=== PATIENT | female | born 1950 | race Caucasian/White ===

== ENCOUNTER 2019-10-04 13:40 | Inpatient (IN) ==
[2019-10-04] MEDS ORDERED: Ethanol\\Acetic Acid\\Na Ace\\Ben 1,000 ML IRRIG.SOLN IR ONE (13:58)
[2019-10-04] MEDS ORDERED: CeFAZolin Syr 2,000MG/20 ML 2,000 MG/20 ML SYRINGE IVPB ONE (13:59)
[2019-10-04] MEDS ORDERED: Ringers Solution, Lactated 1,000 ML IVC SCH ×2 (14:00→18:29)
[2019-10-04] MEDS ORDERED: *HR* Propofol 200 MG/20 ML VIAL IVP ONE (15:12)
[2019-10-04] MEDS ORDERED: Lidocaine -MPF 2% 2 ML VIAL ONE (15:12)
[2019-10-04] MEDS ORDERED: Dexamethasone 4 MG/ML VIAL ONE (15:12)
[2019-10-04] MEDS ORDERED: *HR* Succinylcholine 200 MG/10 ML VIAL IVP ONE (15:12)
[2019-10-04] MEDS ORDERED: Lidocaine HCL 4 ML Topical Solution (Laryng-O-Jet Kit Sterile Pak) TP ONE (15:12)
[2019-10-04] MEDS ORDERED: Ondansetron 4 MG/2 ML VIAL ONE (15:12)
[2019-10-04] MEDS ORDERED: Ondansetron 4 MG/2 ML VIAL IVP ONE (15:16)
[2019-10-04] MEDS ORDERED: *HR* HYDROmorphone (PF) 1 MG/ML SYRINGE IVP PRN (15:16)
[2019-10-04] MEDS ORDERED: *HR* Promethazine 25 MG/ML VIAL IVP PRN (15:16)
[2019-10-04] MEDS ORDERED: *HR* OxyCODONE Immed Rel 5 MG TABLET PO PRN ×2 (15:16→18:29)
[2019-10-04] MEDS ORDERED: ROPIVACAINE/PF/NS 0.25% 1 EACH SYRINGE INTRAART ONE (16:10)
[2019-10-04] MEDS ORDERED: Ropivacaine/PF 0.5% 30 ML VIAL ONE (16:10)
[2019-10-04] MEDS ORDERED: *HR* FentaNYL (PF) 100 MCG/2 ML VIAL ONE (16:28)
[2019-10-04] MEDS ORDERED: EPHEDrine 50 MG/ML VIAL ONE (16:52)
[2019-10-04] MEDS ORDERED: *HR* Enoxaparin 30 MG/0.3 ML SYRINGE SQ SCH (18:00)
[2019-10-04] MEDS ORDERED: *HR* OxyCODONE/APAP 5/325 TABLET PO PRN (18:29)
[2019-10-04] MEDS ORDERED: Naloxone 0.4 MG/ML INJ IVP PRN (18:29)
[2019-10-04] MEDS ORDERED: Sennosides 8.6 MG TABLET PO PRN (18:29)
[2019-10-04] MEDS ORDERED: MOM Conc 10 ML UD.LIQ PO PRN (18:29)
[2019-10-04] MEDS ORDERED: Ondansetron 4 MG/2 ML VIAL IVP PRN (18:29)
[2019-10-04] MEDS ORDERED: hydrOXYzine pamoate 25 MG CAPSULE PO PRN (18:29)
[2019-10-04 18:38] LABS: Hematocrit 38.8 % (35.3-44.9); Hemoglobin 13.1 g/dL (11.5-15.4)
[2019-10-04] MEDS: ceFAZolin 2,000 MG in 0.9 % Sodium Chloride 100 ML IVPB SCH (21:47)
[2019-10-05] MEDS: ceFAZolin 2,000 MG in 0.9 % Sodium Chloride 100 ML IVPB SCH (05:35)
[2019-10-05] MEDS ORDERED: *HR* Enoxaparin 30 MG/0.3 ML SYRINGE SQ SCH (06:00)
[2019-10-05 06:31] LABS: Hemoglobin 13.4 g/dL (11.5-15.4)
[2019-10-05 06:45] VITALS: BP 147/81
[2019-10-05 07:06] LABS: BUN/Creatinine Ratio 14 (6-26); Blood Urea Nitrogen 14 mg/dL (8-23); Calcium 9.3 mg/dL (8.6-10.3); Carbon Dioxide 26 mEq/L (23-29); Chloride 106 mEq/L (98-107); Glucose 119 mg/dL (70-105); Osmolality,Calculated 300 (280-300); Potassium 5.1 mEq/L (3.5-5.1); Sodium 144 mEq/L (136-145); eGFR For African Americans > 60 (> 60); eGFR For Non-African Americans 55 (> 60)
[2019-10-05] MEDS ORDERED: Cholecalciferol (D-3) 1,000 UNIT (25MCG) TABLET PO SCH (09:00)
[2019-10-05] MEDS ORDERED: Loratadine 10 MG TABLET PO SCH (09:00)
[2019-10-05] MEDS ORDERED: Ascorbic Acid 500 MG TABLET PO SCH (09:00)
[2019-10-05] MEDS ORDERED: Zinc Sulfate 220 MG CAPSULE PO SCH (09:00)
== END 2019-10-05 11:39 | disposition home or self-care (01) | DRG 483 ==
LOC: SAMDAY 13:40 → 3NENU 18:20
PROVIDERS: ADMIT Orthopaedic Surgery; ATTEND Orthopaedic Surgery

== ENCOUNTER 2022-01-29 19:40 | Inpatient (IN) ==
[2022-01-29 20:46] LABS: Bilirubin,Urine Negative (Negative); Blood,Urine Negative (Negative); Clarity,Urine Clear (Clear); Color,Urine Yellow (Yellow); Glucose,Urine (UA) Normal (Normal); Ketones,Urine Trace mg/dL (Negative); Leukocyte Esterase,Urine Negative (Negative); Mucus,Urine Few per lpf (None-Few); Nitrite,Urine Negative (Negative); Protein,Urine 50 mg/dL (Neg-Trace); RBC,Urine 0-3 per hpf (0-3); Specific Gravity,Urine > 1.030 (1.010-1.025); Squamous Epithelial Cell,Urine Few per hpf (None-Few); WBC,Urine 0-3 per hpf (0-3)
[2022-01-29 20:50] LABS: Basophils # 0.1 K/mcL (0.0-0.2); Basophils % 0.4 %; Eosinophils % 0.1 %; Hematocrit 42.7 % (35.3-44.9); Hemoglobin 14.8 g/dL (11.5-15.4); Immature Granulocytes % 0.4 % (0-4); Lymphocytes # 1.8 K/mcL (0.6-4.6); Lymphocytes % 11.2 %; Mean Corpuscular HGB Conc 34.7 g/dL (31.6-35.5); Mean Corpuscular Hemoglobin 31.8 pg (28.0-33.3); Mean Corpuscular Volume 91.6 fL (83.0-100.0); Mean Platelet Volume 9.3 fL (9.4-12.4); Monocytes # 0.8 K/mcL (0.0-1.3); Monocytes % 4.8 %; Neutrophils # 13.6 K/mcL (1.6-8.9); Platelet Count 270 K/mcL (140-400); Red Blood Count 4.66 M/mcL (3.82-4.97); Red Cell Distribution Width 11.9 % (11.5-14.5); Segmented Neutrophils % 83.1 %; White Blood Count 16.3 K/mcL (4.3-11.1)
[2022-01-29] MEDS ORDERED: Ketorolac 30 MG/ML VIAL IVP ONE (21:05)
[2022-01-29] MEDS ORDERED: Iopamidol - 370 500 ML MLS IVP ONE (21:05)
[2022-01-29] MEDS ORDERED: 0.9 % Sodium Chloride 1,000 ML IVC ONE (21:05)
[2022-01-29 21:07] LABS: Albumin 4.5 g/dL (3.5-5.7); Albumin/Globulin Ratio 1.6 (1.1-2.2); Bilirubin,Direct 0.1 mg/dL (0.0-0.2); Bilirubin,Total 1.1 mg/dL (0.3-1.0); Calcium 9.9 mg/dL (8.6-10.3); Globulin 2.9 g/dL (2.4-3.5); Potassium 4.2 mEq/L (3.5-5.1); Total Protein 7.4 g/dL (6.4-8.9)
[2022-01-29 21:22] LABS: Influenza A PCR Negative (Negative); Influenza B PCR Negative (Negative); Resp. Syncytial Virus PCR Negative (Negative); SARS-CoV-2 by PCR (In House) Negative (Negative)
[2022-01-29] MEDS ORDERED: Vancomycin 1,250 MG/262.5 ML IV.SOLN IVPB ONE (23:28)
[2022-01-29] MEDS ORDERED: Piperacillin/Tazobactam 3.375 GM in 0.9 % Sodium Chloride Mini Bag 100 ML IVPB ONE (23:28)
[2022-01-30] MEDS ORDERED: Ondansetron 4 MG/2 ML VIAL IVP PRN (00:10)
[2022-01-30] MEDS ORDERED: Naloxone 0.4 MG/ML INJ IVP PRN (00:10)
[2022-01-30] MEDS: 0.9 % Sodium Chloride 1,000 ML IVC SCH ×2 (00:40→09:34)
[2022-01-30 03:35] LABS: Basophils # 0.1 K/mcL (0.0-0.2); Basophils % 0.7 %; Eosinophils # 0.1 K/mcL (0.0-0.6); Eosinophils % 0.6 %; Hematocrit 35.5 % (35.3-44.9); Immature Granulocytes % 0.3 % (0-4); Lymphocytes # 2.5 K/mcL (0.6-4.6); Mean Corpuscular HGB Conc 34.1 g/dL (31.6-35.5); Mean Corpuscular Hemoglobin 31.2 pg (28.0-33.3); Mean Corpuscular Volume 91.5 fL (83.0-100.0); Mean Platelet Volume 9.6 fL (9.4-12.4); Monocytes # 0.9 K/mcL (0.0-1.3); Monocytes % 8.3 %; Neutrophils # 6.9 K/mcL (1.6-8.9); Platelet Count 224 K/mcL (140-400); Red Blood Count 3.88 M/mcL (3.82-4.97); Red Cell Distribution Width 11.9 % (11.5-14.5); Segmented Neutrophils % 66.1 %; White Blood Count 10.4 K/mcL (4.3-11.1)
[2022-01-30 03:40] LABS: Hemoglobin 12.1 g/dL (11.5-15.4)
[2022-01-30 03:47] LABS: INR 1.1; Prothrombin Time 12.5 Seconds (9.4-12.1)
[2022-01-30 04:17] LABS: BUN/Creatinine Ratio 17 (6-26); Blood Urea Nitrogen 17 mg/dL (8-23); Calcium 8.3 mg/dL (8.6-10.3); Carbon Dioxide 23 mEq/L (23-29); Chloride 111 mEq/L (98-107); Glucose 92 mg/dL (70-105); Magnesium 1.9 mg/dL (1.6-2.6); Osmolality,Calculated 293 (280-300); Potassium 3.9 mEq/L (3.5-5.1); Sodium 141 mEq/L (136-145); eGFR For African Americans > 60 (> 60); eGFR For Non-African Americans 53 (> 60)
[2022-01-30] MEDS: Piperacillin/Tazobactam 3.375 GM in 0.9 % Sodium Chloride Mini Bag 100 ML IVPB SCH ×3 (09:33→23:50)
[2022-01-30] MEDS ORDERED: Vancomycin 1,250 MG/262.5 ML IV.SOLN IVPB SCH (12:00)
[2022-01-31 03:04] LABS: Basophils # 0.1 K/mcL (0.0-0.2); Eosinophils # 0.3 K/mcL (0.0-0.6); Eosinophils % 3.4 %; Hemoglobin 12.3 g/dL (11.5-15.4); Immature Granulocytes % 0.1 % (0-4); Lymphocytes # 2.4 K/mcL (0.6-4.6); Mean Corpuscular HGB Conc 33.2 g/dL (31.6-35.5); Mean Corpuscular Volume 93.2 fL (83.0-100.0); Mean Platelet Volume 9.9 fL (9.4-12.4); Monocytes # 0.7 K/mcL (0.0-1.3); Monocytes % 9.8 %; Neutrophils # 3.8 K/mcL (1.6-8.9); Platelet Count 209 K/mcL (140-400); Red Blood Count 3.97 M/mcL (3.82-4.97); Segmented Neutrophils % 52.7 %; White Blood Count 7.3 K/mcL (4.3-11.1)
[2022-01-31 03:34] LABS: BUN/Creatinine Ratio 13 (6-26); Blood Urea Nitrogen 11 mg/dL (8-23); Calcium 8.7 mg/dL (8.6-10.3); Carbon Dioxide 22 mEq/L (23-29); Chloride 110 mEq/L (98-107); Glucose 73 mg/dL (70-105); Osmolality,Calculated 290 (280-300); Sodium 141 mEq/L (136-145); eGFR For African Americans > 60 (> 60); eGFR For Non-African Americans > 60 (> 60)
[2022-01-31] MEDS ORDERED: Pantoprazole 40 MG VIAL IVP SCH (09:00)
[2022-01-31] MEDS: Piperacillin/Tazobactam 3.375 GM in 0.9 % Sodium Chloride Mini Bag 100 ML IVPB SCH (10:20)
[2022-01-31] MEDS ORDERED: hydrOXYzine pamoate 25 MG CAPSULE PO PRN (11:14)
[2022-01-31 14:45] VITALS: BP 129/82; PULSE 69; TEMP 98.1; O2SAT 96
[2022-01-31] MEDS ORDERED: Famotidine 20 MG TABLET PO SCH (21:00)
== END 2022-01-31 16:39 | disposition home or self-care (01) | DRG 395 ==
LOC: 3ANU 19:40 → EMEROOARM 19:40 → SUATTDRO 01-30 00:10 → 3ANU 01-30 00:30
PROVIDERS: ADMIT Internal Medicine; ATTEND General Practice